=== PATIENT | female | born 2000 | race Caucasian/White ===

== ENCOUNTER 2019-01-16 20:22 | Emergency (ER) | payer BC ==
[~2019-01-16] VITALS: Ht 160 cm; Wt 65.8 kg
[2019-01-16] MEDS ORDERED: AMOX TR-K CLV1 EAC4 PO (21:07)
[2019-01-16] MEDS ORDERED: MEDROL DOSPAK21 TA1 PO (21:07)
[2019-01-16 21:52] VITALS: BP 126/86
== END 2019-01-16 21:52 | disposition home or self-care (01) ==
LOC: ER 20:22
DX: R51 Headache (principal); R68.84 Jaw pain